=== PATIENT | male | born 1975 | race African-American/Black ===

== ENCOUNTER 2020-06-23 18:11 | Emergency (ER) | payer SELFPAY ==
[2020-06-23] MEDS ORDERED: Lidocaine 1% PF 5 ML VIAL ONE ×2 (19:09→19:29)
[2020-06-23] MEDS ORDERED: Boostrix 0.5 ML (Tdap) VIAL ONE (19:28)
[2020-06-23] MEDS ORDERED: Bacitracin 1 PK ONE ×2 (19:39→19:42)
== END 2020-06-23 19:45 | disposition home or self-care (01) ==
LOC: ERS 18:11
DX: S61.211A Laceration without foreign body of left index finger without damage to nail, initial encounter (principal); W19.XXXA Unspecified fall, initial encounter
CPT/HCPCS: 12001; 90471; 90715

== ENCOUNTER 2020-07-02 17:43 | Emergency (ER) | payer SELFPAY ==
[2020-07-02] MEDS ORDERED: Bacitracin 1 PK ONE (18:26)
== END 2020-07-02 18:48 | disposition home or self-care (01) ==
LOC: ERS 17:43
DX: S61.211D Laceration without foreign body of left index finger without damage to nail, subsequent encounter (principal); F17.210 Nicotine dependence, cigarettes, uncomplicated